=== PATIENT | male | born 1950 | race Caucasian/White ===

== ENCOUNTER 2020-02-16 01:18 | Inpatient (IN) | payer OTHER ==
[~2020-02-16] VITALS: Ht 172.7 cm; Wt 112.3 kg
[2020-02-16 01:21] VITALS: BP 139/87
--- NOTE | 2020-02-16 01:44 | NUR ---
SPOKE WITH NURSING STAFF AT [facility] WHO STATES PT LEFT AMA ON FRIDAY, THE NURSING STAFF DOES NOT BELIEVE A BED IS HELD FOR HIM, THIS NURSE REQUESTED TO SPEAK TO A [employer] FISHING VESSEL OR [employer] HAND STRAND AND BINDER CONTROLLER, NURSING STAFF STATED THEY WOULD CALL THE DON AND RETURN MY PHONE CALL.
--- NOTE | 2020-02-16 02:08 | NUR ---
RECORDS RECEIVED FROM [facility]. SPOKE WITH NURSING STAFF AGAIN AT [facility] WHO STATES HE CANNOT RETURN TO THE FACILITY IF HE IS COVID POSITIVE. NURSING STAFF GOING TO FAX OVER MED LIST.
--- NOTE | 2020-02-16 02:13 | NUR ---
CALLED BOTH SISTER AND BROTHER, NEITHER ANSWERED THE PHONE, VOICEMAILS LEFT FOR BOTH.
[2020-02-16] MEDS ORDERED: ACETAZOLAMIDE250 M1 PO (02:38)
[2020-02-16] MEDS ORDERED: TYLENOL325 MG PO (02:38)
[2020-02-16] MEDS ORDERED: PROAIR HFA8.5 GM INH (02:39)
[2020-02-16] MEDS ORDERED: ALLOPURINOL 10100 M3 PO (02:40)
[2020-02-16] MEDS ORDERED: ASA81BEC PO (02:43)
[2020-02-16] MEDS ORDERED: LIPITOR40 MG PO (02:44)
[2020-02-16] MEDS ORDERED: ELIQUIS2.5 MG PO (02:44)
[2020-02-16] MEDS ORDERED: CARVEDILOL12.5 MG PO (02:45)
[2020-02-16] MEDS ORDERED: COLACE100 MG PO (02:45)
[2020-02-16] MEDS ORDERED: DULOXETINE HCL20 MG PO (02:47)
[2020-02-16] MEDS ORDERED: NEURONTIN300 MG PO (02:48)
[2020-02-16] MEDS ORDERED: MIRALAX17 GM PO (02:48)
[2020-02-16] MEDS ORDERED: LANTUS SUBQ (02:49)
[2020-02-16] MEDS ORDERED: TRADJENTA5 MG (02:50)
[2020-02-16] MEDS ORDERED: MELATONIN3 M1 PO (02:50)
[2020-02-16] MEDS ORDERED: HYDROCODON-ACE1 EAC7 PO (02:51)
[2020-02-16] MEDS ORDERED: NOVOLOG FL100 UNIT/M SUBQ (02:52)
[2020-02-16] MEDS ORDERED: SENNA PLUS TAB1 EACH PO (02:52)
[2020-02-16] MEDS ORDERED: FLOMAX0.4 MG PO (02:53)
[2020-02-16] MEDS ORDERED: SPIRONOLACTONE25 MG PO (02:53)
[2020-02-16] MEDS ORDERED: DEMADEX20 MG PO ×2 (02:54→02:55)
[2020-02-16] MEDS ORDERED: TRAZODONE HCL50 MG PO (02:55)
[2020-02-16] MEDS ORDERED: VITAMIN D31250 MCG PO (02:56)
--- NOTE | 2020-02-16 08:21 | NUR ---
SPOKE WITH SISTER (YANA) WHO REPORTS SHE CANNOT TAKE BROTHER. SHE SAID HE IS ON HIS OWN AND SHE CANNOT HELP ME.
--- NOTE | 2020-02-16 08:56 | NUR ---
SPOKE WITH BROTHER (MATTHIEU) WHO REPORTS HE WANTS NOTHING TO DO WITH HIS BROTHER AND HE CANNOT BE DISCHARGED TO HIM
--- NOTE | 2020-02-16 09:06 | NUR ---
CALLED [facility], LEFT MESSAGE FOR PROGRAMMER ANALYST HEALTH IT. CALL BACK NUMBER PROVIDED.
--- NOTE | 2020-02-16 14:27 | NUR ---
SPOKE WITH KOURTNEY FROM [facility], WHO STATES THAT THEY HAVE NO OPEN BEDS BUT MAYBE THEY COULD POSSIBLY GET HIM IN TOMORROW IF HE IS ACCEPTED BY [facility]. KOURTNEY'S PHONE NUMBER [phone]. FAX NUMBER [phone]. WE WOULD NEED TO FAX OVER FACE SHEET, MEDS LIST AND DOCTORS NOTE SHOWING THE PATIENTS NEEDS PLACEMENT.
[2020-02-16 15:33] LABS: URINE BILIRUBIN NEGATIVE (Negative); URINE BLOOD NEGATIVE (Negative); URINE CLARITY CLEAR; URINE COLOR YELLOW; URINE GLUCOSE-RANDOM* NEGATIVE (Negative); URINE KETONES NEGATIVE (Negative); URINE LEUKOCYTES-REFLEX NEGATIVE (Negative); URINE NITRITE-REFLEX NEGATIVE (Negative); URINE PROTEIN (DIPSTICK) 1+ (Negative); URINE UROBILINOGEN 0.2 E.U./dl (0.2-1.0)
[2020-02-16 15:40] LABS: HEMATOCRIT 45.4 % (42.0-52.0); HEMOGLOBIN 14.7 gm/dL (14.0-18.0); MCH 31.1 pg (26.0-34.0); MCHC 32.3 g/dL (28.0-37.0); MCV 96.3 fL (80.0-100.0); RBC 4.71 mil/uL (4.50-6.00); RDW 19.2 % (10.5-14.5); WBC 10.8 thou/uL (4.0-11.0)
--- NOTE | 2020-02-16 15:40 | EKG ---
[facility] [address] ELECTROCARDIOGRAM REPORT Name: VENKATESH CAO Room #: REG M.R.#: [id number] Admission: 02/16/20 Attend Phys: Discharge: Date of : 54 Report #: [id number] THIS REPORT FOR: cc: [facility] - Clinic physician unknown [facility] - Clinic physician unknown Percy Garcia MD ~ THIS REPORT FOR: //name// [facility] ED Test Date: 2020-02-16 Test Time: 15:15:19 Pat Name: VENKATESH CAO Department: Room: Gender: M Corporate Operations Compliance Manager: indira : [id number] Requested By: Sunshine Chinchilla Order Number: [id number] MD: Percy Garcia Measurements Intervals Driggs Rate: 90 P: RI: QRS: 94 QRSD: 97 T: 88 QT: 365 QTc: 447 Interpretive Statements Atrial fibrillation Right axis deviation Low voltage, extremity leads Probable anteroseptal infarct, old No previous ECG available for comparison Electronically Signed On 02-16-2020 15:40:00 CDT by Percy Garcia [email or web address] <ELECTRONICALLY SIGNED> By: Percy Garcia MD 02/16/20 1540 1515 1515 Percy Garcia MD /[place]
[2020-02-16 15:42] LABS: SQUAMOUS 0-3 Few /LPF (0-3)
[2020-02-16 15:43] LABS: BACTERIA-REFLEX None Seen /HPF (None Seen); CASTS None Seen /LPF (None Seen); CRYSTALS None Seen /LPF (None Seen); URINE RBC None Seen /HPF (0-2); URINE WBC-REFLEX 0-5 Rare /HPF (0-5)
[2020-02-16 16:18] VITALS: BP 115/76
[2020-02-16 16:21] LABS: CALCIUM 8.6 mg/dL (8.5-10.1); CREATININE 1.2 mg/dL (0.7-1.3); POTASSIUM 3.5 mmol/L (3.5-5.1)
[2020-02-16 16:23] LABS: PROTIME 10.4 Seconds (9.3-11.4)
[2020-02-16 21:00] VITALS: BP 150/89
[2020-02-16 23:35] VITALS: BP 140/78
[2020-02-17 06:15] VITALS: BP 137/75
[2020-02-17 08:01] VITALS: BP 107/49
--- NOTE | 2020-02-17 10:53 | NUR ---
INITIAL ASSESSMENT: Received high risk nursing referral. CASSIE reviewed chart and spoke with nursing. Pt was admitted and placed in Enhanced Isolation. Per pt, he recently tested positive for COVID-19 at [facility]. Awaiting test results from [facility] at this time. Pt left [facility] last week and went to stay with family. Family not willing to assist pt. CASSIE placed call to pt's room. No answer. CASSIE contacted [place] post-acute liaison, who states they are able to accept pt at [facility], pending insurance authorization. Will need therapy evals. CASSIE contacted attending physician to request therapy evals. CASSIE notified director of therapy, to assist with evals to be completed, in order to start working on insurance authorization. CASSIE is following to assist as needed with discharge planning.
--- NOTE | 2020-02-17 13:39 | NUR ---
Nutrition: Received consult for diet instruction. Pt here for social admission for placement. Pt is homeless and very recently tested COVID+ at outside hospital prior to admit here. Is in enhanced isolation. Phoned pt, but pt did not answer. Is expected to discharge to care facility soon, pending insurance authorization. Hx includes a fib, heart failure, DM II. BGs so far controlled at 110-149 mg/dl and no A1c data available. On linagliptin, SSI, Lantus. Will reattempt diet education when no longer requiring COVID isolation.
[2020-02-17] MEDS ORDERED: ACETAMINOPHEN325 MG PO (14:15)
[2020-02-17] MEDS ORDERED: AAA-MED REC COMPLETE (14:23)
[2020-02-17 15:12] VITALS: BP 98/63
--- NOTE | 2020-02-17 16:22 | NUR ---
PT'S COVID WAS POSITIVE FROM 02/16/20 TEST , RN HAS REPORTED TO [facility], PT IS CONTINUING ISOLATION.
--- NOTE | 2020-02-17 16:26 | NUR ---
PT IS A&OX3, PT IS ON RA, PT'S VS ARE STABLE, PT GETS UP TO CHAIR WITH CANE, PT IS CONTINUING ISOLATION FOR POSITIVE COVID, PT DENIES PAIN AND SOB AT THIS TIME.
[2020-02-17 19:30] VITALS: BP 110/61
[2020-02-18 00:56] VITALS: BP 110/61
[2020-02-18 08:01] VITALS: BP 137/87
[2020-02-18 10:10] LABS: HEMATOCRIT 48.4 % (42.0-52.0); HEMOGLOBIN 15.7 gm/dL (14.0-18.0); MCHC 32.4 g/dL (28.0-37.0); MCV 95.5 fL (80.0-100.0); RBC 5.07 mil/uL (4.50-6.00); RDW 19.5 % (10.5-14.5); WBC 7.1 thou/uL (4.0-11.0)
--- NOTE | 2020-02-18 10:19 | NUR ---
CASSIE reviewed chart and spoke with nursing and attending physician. Pt is in Enhanced Isolation due to COVID-19. Pt is medically stable for discharge to SNF pending insurance authorization. CASSIE faxed PT eval from yesterday and clinical updates to [facility] for review. CASSIE updated [facility] post-acute liaison, who confirms they are able to accept pt pending insurance authorization. Awaiting OT eval and additional therapy notes. CASSIE is following to assist as needed with discharge planning.
[2020-02-18 10:22] LABS: CALCIUM 8.1 mg/dL (8.5-10.1); CREATININE 1.5 mg/dL (0.7-1.3); MAGNESIUM 1.6 mg/dL (1.8-2.4); POTASSIUM 3.4 mmol/L (3.5-5.1)
[2020-02-18 15:39] VITALS: BP 113/65
--- NOTE | 2020-02-18 18:03 | NUR ---
assumed care of pt at 0700. pt aox3 in no acute distress. requesting hydrocodone for generalized pain. up to chair throughout the day. good appetite. IVF infusing per order. sugars well controlled on sliding scale. excoriating noted to inner thigh - relayed to physician. vitals stable. wcm.
[2020-02-18 19:50] VITALS: BP 97/55
[2020-02-19 04:12] VITALS: BP 102/67
--- NOTE | 2020-02-19 05:38 | NUR ---
PT MAKING PROGRESS TOWARDS GOALS. ON ROOM AIR THROUGHOUT THE NIGHT. UPON INITIAL ASSESSMENT PT STATED THAT HE WAS HAVING "A HARD TIME BREAHING." PT WAS SITTING IN THE CHAIR, ON ROOM AIR. HE WAS ABLE TO SPEAK IN FULL SENTENCES WITHOUT OBSERVABLE DYSPNEA AND HAD AN O2 SAT OF 97% ON ROOM AIR. THIS AM PT STATED THAT HE FELT HE WAS BREATHING JUST A LITLE BETTER. CONTINUE TO MONITOR.
[2020-02-19 06:30] LABS: HEMATOCRIT 47.3 % (42.0-52.0); HEMOGLOBIN 15.3 gm/dL (14.0-18.0); MCH 30.6 pg (26.0-34.0); MCHC 32.4 g/dL (28.0-37.0); MCV 94.6 fL (80.0-100.0); RDW 19.2 % (10.5-14.5); WBC 5.4 thou/uL (4.0-11.0)
[2020-02-19 06:58] LABS: CALCIUM 8.1 mg/dL (8.5-10.1); CREATININE 1.5 mg/dL (0.7-1.3); MAGNESIUM 2.1 mg/dL (1.8-2.4)
[2020-02-19 07:00] LABS: POTASSIUM 2.9 mmol/L (3.5-5.1)
[2020-02-19 07:35] VITALS: BP 111/62
--- NOTE | 2020-02-19 11:14 | NUR ---
ASSUMED CARE APPROX 0700. PT ALERT AND ORIENTED X4. AT START OF SHIFT REC'D CRITICAL LAB FOR K+ 2.9 AND NOT ON ELECTROLYTE PROTOCOL. DR. VALENZUELA NOTIFIED. NEW ORDERS PLACED AND K+ GIVEN PER ORDERS. PT NOT TELE MONITORED AT THIS TIME. PT ON ROOM AIR W/ NO SIGNS OF DISTRESS NOTED. PT DENIES ACUTE PAIN. PT DENIES CHEST PAIN. WILL CONTINUE TO MONITOR.
[2020-02-19 15:55] VITALS: BP 105/68
[2020-02-19 19:25] VITALS: BP 142/49
--- NOTE | 2020-02-20 03:31 | NUR ---
PATIENT ASSESSEDC AND IS ALERT X 4. SKIN WARM AND DRY. RESP EVEN AND UNLABORED. REMAINS IN ISOLATION FOR + COVID. TALKED TO SISTER AND SHE DISCUSSED THAT PATIENT NEEDS TO CALL MAINS AND SERVICE SUPERVISOR AT [facility] TO BE ABLE TO GO BACK TO THAT FACILITY. HAD A LAXATIVE WITH NO RESULTS. BED ALARM ON. IV PATENT AND INFUSING NS.STANDS UP AT BEDSIDE AND VOIDS PER URINAL. STANDS AT BEDIDE. HAS ALOT OF BRUISING ON LEFT ARM AND SOME ON RIGHT ARM. CONT PLAN OF CARE. PAIN MED FOR BACK PAIN GIVEN WITH NO RESULTS.
[2020-02-20 04:21] VITALS: BP 86/48
[2020-02-20 08:33] VITALS: BP 129/78
--- NOTE | 2020-02-20 11:44 | NUR ---
ASSUMED CARE APPROX 0700. PT ALERT AND ORIENTED X4. ASSESSMENT CHARTED AND VSS. PT AFEBRILE. PT ON ROOM AIR W/O SIGNS OF DISTRESS NOTED. PT FELT SHORT OF BREATH THIS AM AND REQUESTED BREATHING TX. REPORTS IMPROVEMENT AFTER TX. PT REPORTS PAIN OF 6/10, BUT DECLINES PAIN MED AT THIS TIME. WILL CONTINUE TO MONITOR.
[2020-02-20 16:53] VITALS: BP 112/73
[2020-02-20 18:06] LABS: CALCIUM 7.8 mg/dL (8.5-10.1); MAGNESIUM 1.8 mg/dL (1.8-2.4); POTASSIUM 4.4 mmol/L (3.5-5.1)
[2020-02-20 19:25] VITALS: BP 138/86
--- NOTE | 2020-02-20 23:21 | NUR ---
PT AMBULATING STEADY IN ROOM WITH CANE. PT REPOSITIONING SELF IN BED AND KICKING LEGS UP IN AIR. PT REQUESTING SNACKS AND REFILL OF WATER. PT REQUESTED IVF BE DISCONTINUED SINCE HE DRINKS A LOT OF FLUIDS. PT HAS PUSHED SPEECH AND YELLS FOR HIS NEEDS FROM ROOM OR WALKS TO THE DOOR. PT IS IRRITABLE AND RESTLESS. LUNGS DIMINSHED WITH COUGH. PT USING PRN O2 NC FOR COMFORT. PT DENIES HAVING BM, DECLINED PRUNE JUICE, STATED HE ONLY DRINKS COFFEE IN THE AM. PT REQUESTED PRN FOR PAIN , SLEEP AND NAUSEA AND ALL PROVIED.
[2020-02-21 04:34] VITALS: BP 109/67
[2020-02-21 07:05] LABS: CALCIUM 8.2 mg/dL (8.5-10.1); CREATININE 1.1 mg/dL (0.7-1.3); MAGNESIUM 1.8 mg/dL (1.8-2.4); POTASSIUM 4.1 mmol/L (3.5-5.1)
[2020-02-21 08:40] VITALS: BP 114/53
--- NOTE | 2020-02-21 10:22 | NUR ---
CASSIE reviewed chart and spoke with nursing and attending physician. Pt remains in Enhanced Isolation due to COVID-19. CASSIE faxed updated clinical info, vital signs and PT note from today to [facility] post-acute liaison. Awaiting insurance authorization at this time. CASSIE contacted therapy mgr to request early therapy visits today. Repeat COVID test ordered today, as pt needs one within 48 hours of discharge per SNF's request. Pt able to transport via w/c van. Chart copy will need to be updated. CASSIE is following to assist as needed with discharge planning.
[2020-02-21 14:16] VITALS: BP 123/66
--- NOTE | 2020-02-21 16:16 | NUR ---
PT IS A&OX3, PT'S VS AND BS ARE STABLE, PT GETS UP TO CHAIR WITH CANE, PT DENIES N/V AND SOB , PT'S HAS COVID TEST TODAY, RESULT CAME BACK POSITIVE, BUT RN HAS RECEIVED ORDER , PT WILL DC TO [facility] ABOUT 1700-1730PM.
[2020-02-21 17:01] VITALS: BP 123/66
--- NOTE | 2020-02-21 17:24 | NUR ---
PT' SECOND COVID IS POSITIVE FROM TODAY TEST, PT IS CONTINUING ISOLATION , BUT PT IS DC TO SNF NOW , RN HAS GIVING REPORT TO SNF , PT LEFT BY AT 1720PM.
== END 2020-02-21 17:32 | DRG 177 ==
LOC: ER 01:18 → 3W 16:29 → EROBS 16:29 → 3W 19:40
PROVIDERS: Emergency Medicine; ADMIT Internal Medicine; ATTEND Internal Medicine
DX: U07.1 COVID-19 (principal); N17.0 Acute kidney failure with tubular necrosis; I50.9 Heart failure, unspecified; I48.91 Unspecified atrial fibrillation; E87.6 Hypokalemia; K59.00 Constipation, unspecified; N40.0 Benign prostatic hyperplasia without lower urinary tract symptoms; E11.40 Type 2 diabetes mellitus with diabetic neuropathy, unspecified; J44.9 Chronic obstructive pulmonary disease, unspecified; I25.5 Ischemic cardiomyopathy; F32.9 Major depressive disorder, single episode, unspecified; E78.5 Hyperlipidemia, unspecified; G47.33 Obstructive sleep apnea (adult) (pediatric); I48.0 Paroxysmal atrial fibrillation; S40.819A Abrasion of unspecified upper arm, initial encounter; W18.30XA Fall on same level, unspecified, initial encounter; Y93.89 Activity, other specified; Z79.01 Long term (current) use of anticoagulants; Y92.89 Other specified places as the place of occurrence of the external cause; Y99.8 Other external cause status
CPT/HCPCS: 10080